=== PATIENT | male | born 1985 | race Caucasian/White ===

== ENCOUNTER 2021-02-12 14:28 | Emergency (ER) | payer OTHER ==
[2021-02-12 16:06] LABS: BASOPHIL 0.4 % (0-2); EOSINOPHIL 0.9 % (0-5); HCT 47.2 % (42.0-52.0); HGB 16.4 g/dl (13.2-18.0); LYMPHOCYTE 23.8 % (15-48); MCH 29.6 pg (25.0-31.0); MCHC 34.7 g/dL (32.0-36.0); MCV 85.2 fL (78.0-100.0); MONOCYTE 9.2 % (0-12); MPV 8.8 fL (6.0-9.5); NEUTROPHIL 65.4 % (41-80); NRBC 0; PLT 276 K/uL (150-400); RBC 5.54 M/uL (4.70-6.00); RDW 12.4 % (11.5-14.0); WBC 9.3 K/uL (4.0-10.5)
[2021-02-12 16:31] LABS: BILIRUBIN NEGATIVE (NEGATIVE); BLOOD NEGATIVE Ery/uL (NEGATIVE); CLARITY CLEAR (CLEAR); COLOR YELLOW (YELLOW); GLUCOSE (U) NORMAL (NORMAL); LEUKOCYTES NEGATIVE Leu/uL (NEGATIVE); NITRITE NEGATIVE (NEGATIVE); PROTEIN NEGATIVE (NEGATIVE); SPECIFIC GRAVITY <=1.005 (1.001-1.030); UROBILINOGEN 0.2 mg/dL (0.2-1.0)
[2021-02-12 16:32] LABS: AMPHETAMINES NEGATIVE (NEGATIVE); BARBITURATES NEGATIVE (NEGATIVE); ECSTASY (MDMA) NEGATIVE (NEGATIVE); MARIJUANA (THC) NEGATIVE (NEGATIVE); METHADONE NEGATIVE (NEGATIVE); OPIATES NEGATIVE (NEGATIVE); OXYCODONE NEGATIVE (NEGATIVE)
[2021-02-12 16:39] LABS: BUN 13 mg/dL (7-18); BUN/CREAT RATIO (CALC) 13.4 RATIO; CHLORIDE 101 mmol/L (98-107); CO2 (BICARBONATE) 25 mmol/L (21-32); CREATININE 0.97 mg/dL (0.67-1.17); GLUCOSE 116 mg/dL (74-106)
[2021-02-12 16:42] LABS: ACETAMINOPHEN (TYLENOL) < 2.0 ug/mL (10.0-30.0)
== END 2021-02-12 20:44 ==
LOC: FER 14:28
PROVIDERS: Emergency Medicine
DX: F32.9 Major depressive disorder, single episode, unspecified (principal); F17.210 Nicotine dependence, cigarettes, uncomplicated; Z20.822 Contact with and (suspected) exposure to COVID-19
CPT/HCPCS: 36415; 80048; 80305; 81003; 84443; 85025; 99285; G0480; U0002